=== PATIENT | male | born 1950 | race Caucasian/White ===

== ENCOUNTER → 2024-02-19 | Outpatient (CLI) | payer MEDICARE ==
[~2024-02-19] MED LIST: ATOR1TAB19 PO; CALC600T60 PO; DIAZ10TA2 PO; DIAZ5TAB PO; FOLI1TAB11 PO; HOME MED LIST COMPLETE! XX SCH; IRON65TA2 PO; LIDOCAINE 1% MDV 20ML VIAL As Ordered ONE; METO1TAB32 PO; OMEP-173 PO; OMEP40CA4 PO; PREG25CA PO; PREG75CA3 PO; ROSU20TA61 PO; SPIR1CAP INH; VITA100093 PO
[2024-02-19 07:20] VITALS: TEMP 97
[2024-02-19 07:45] LABS: PLATELET COUNT, AUTOMATED 174 10^3/uL (150-450)
[2024-02-19 10:30] VITALS: BP 133/74; O2SAT 98
== END ==
LOC: M IRPRO 07:10
PROVIDERS: ATTEND Internal Medicine Critical Care Medicine
DX: R91.1 Solitary pulmonary nodule (principal); C34.12 Malignant neoplasm of upper lobe, left bronchus or lung